=== PATIENT | male | born 1960 | race Caucasian/White ===

== ENCOUNTER 2020-09-05 10:43 | Outpatient (CLI) | payer OTHER ==
[~2020-09-05 10:43] MED LIST: ASCO100019 PO; ATOR40TA78 PO; CEPH-368 PO; FENO160T PO; IRON15TA3 PO; MULT-658 PO; NIAC500C8 PO; OLME1TAB38 PO; OXYC5TAB2 PO; SULF1TAB24 PO
[2020-09-05 12:16] LABS: ALANINE AMINOTRANSFERASE 21 U/L (12-78); ALBUMIN 3.8 g/dL (3.4-5.0); ANION GAP 10 mmol/L (5-15); CALCIUM 9.3 mg/dL (8.5-10.1); CHLORIDE 109 mmol/L (98-107); CREATININE 1.69 mg/dL (0.7-1.3)
[2020-09-05 12:18] LABS: ALKALINE PHOSPHATASE 101 U/L (45-117); BILIRUBIN,TOTAL 0.3 mg/dL (0.2-1.0); TOTAL PROTEIN 8.5 g/dL (6.4-8.2)
[2020-09-05] MEDS ORDERED: CITA40TA5 PO (15:47)
[2020-09-05] MEDS ORDERED: CETI10TA76 PO (15:47)
[2020-09-05] MEDS ORDERED: MAGN400C PO (15:48)
== END 2020-09-05 23:59 | disposition home or self-care (01) ==
LOC: STAR 10:43
PROVIDERS: ATTEND Otolaryngology
DX: Z01.812 Encounter for preprocedural laboratory examination (principal); Z20.828 Contact with and (suspected) exposure to other viral communicable diseases; J32.4 Chronic pansinusitis
CPT/HCPCS: 80053; 87635